=== PATIENT | female | born 1930 | race Caucasian/White ===

== ENCOUNTER → 2017-05-29 | Outpatient (CLI) | payer MEDICARE, OTHER ==
[~2017-05-29] MED LIST: AMLO5TAB2 PO; ASPI-183 PO; CARV6.252 PO; ESZO1TAB3 PO; ISOS30TA3 PO; NITR1SUB3 SL; OMEP20TA93 PO; SIMV20TA PO
== END ==
LOC: CLAB 13:44
PROVIDERS: ATTEND Internal Medicine Interventional Cardiology
DX: I25.118 Atherosclerotic heart disease of native coronary artery with other forms of angina pectoris (principal); R06.00 Dyspnea, unspecified; R60.0 Localized edema; R07.89 Other chest pain; I50.9 Heart failure, unspecified; R53.83 Other fatigue; Z79.899 Other long term (current) drug therapy
CPT/HCPCS: 36415; 83880; 84443

== ENCOUNTER → 2017-08-01 | Outpatient (CLI) | payer MEDICARE, OTHER ==
[2017-08-01 12:52] LABS: TROPONIN I LESS THAN 0.02 NG/ML (0.02-0.05)
== END ==
LOC: CLAB 12:07
PROVIDERS: ATTEND Internal Medicine Interventional Cardiology
DX: E78.00 Pure hypercholesterolemia, unspecified (principal); I11.9 Hypertensive heart disease without heart failure; I25.118 Atherosclerotic heart disease of native coronary artery with other forms of angina pectoris; R94.31 Abnormal electrocardiogram [ECG] [EKG]; R07.89 Other chest pain; Z79.899 Other long term (current) drug therapy
CPT/HCPCS: 36415; 82550; 84484